=== PATIENT | female | born 1935 | race Caucasian/White ===

== ENCOUNTER 2019-03-29 06:55 | Inpatient (IN) | payer MEDICARE ==
[~2019-03-29] VITALS: Ht 175.3 cm; Wt 61.7 kg
[2019-03-29] MEDS ORDERED: ALBUTEROL (0.083%) 2.5MG/3ML NEB HHN STA ×2 (07:18→11:30)
[2019-03-29 07:48] LABS: BASOPHILS % 0.4 % (0.0-2.0); EOSINOPHILS % 0.3 % (0.0-5.0); HEMATOCRIT. 30.9 % (36.0-48.0); LYMPHOCYTES % 8.6 % (20.0-50.0); MEAN CORPUSCULAR HEMOGLOBIN 37.3 pg (28.0-32.0); MEAN CORPUSCULAR VOLUME 104.7 fL (81.0-99.0); MEAN PLATELET VOLUME 8.8 fl (7.4-10.4); MONOCYTES % 7.9 % (2.0-8.0); NEUTROPHILS % 82.8 % (40.0-76.0); PLATELET 212 x1000/uL (130-400); RED BLOOD CELL COUNT 2.95 mill/uL (4.2-5.4)
[2019-03-29 07:55] LABS: CHLORIDE 96 mEq/L (98-107)
[2019-03-29 11:21] LABS: BG CARBOXYHEMOGLOBIN 0.7 % (0.5-1.5); BG DEOXYHEMOGLOBIN 13.2 % (0.0-5.0); BG FRACTION INSPIRED OXYGEN 32; BG HCO3 ACT 23.1 mmol/L (22.0-26.0); BG METHEMOGLOBIN 0.1 % (0.0-1.5); BG OXYGEN SATURATION 86.7 % (92.0-98.5); BG PCO2 32.4 mmHg (35.0-45.0); BG PO2 51.8 mmHg (75.0-100.0); BG SAMPLE SITE RIGHT BRACHIAL; BG TOTAL HEMOGLOBIN 11.5 g/dL (12.0-18.0); BG VENT MODE NASAL CANNULA
[2019-03-29] MEDS ORDERED: IPRATROPIUM BROMIDE (0.02%) 0.5MG/2.5ML NEB HHN STA (11:30)
[2019-03-29] MEDS ORDERED: METHYLPREDNISOLONE SOD SUCC 125 MG/2 ML VIAL IV STA (11:30)
[2019-03-29] MEDS ORDERED: IPRATROPIUM/ALBUTEROL 0.5-3(2.5)MG/3ML NEB HHN PRN (12:15)
[2019-03-29] MEDS ORDERED: ONDANSETRON HCL 4MG/2ML INJ IV PRN (12:15)
[2019-03-29] MEDS ORDERED: ACETAMINOPHEN 325MG TABLET PO PRN (12:15)
[2019-03-29] MEDS ORDERED: LEVOFLOXACIN 500MG PREMIX 100 ML IV ONE (13:00)
[2019-03-29] MEDS ORDERED: IPRATROPIUM/ALBUTEROL 0.5-3(2.5)MG/3ML NEB HHN SCH (16:00)
[2019-03-29 22:00] VITALS: BP 131/51
[2019-03-29] MEDS ORDERED: ENOXAPARIN 40MG/0.4ML SYR SUBCUT SCH (22:00)
[2019-03-29] MEDS: METHYLPREDNISOLONE SOD SUCC 40 MG/ML VIAL IV SCH (23:41)
[2019-03-29] MEDS: AMLODIPINE 5MG TABLET PO SCH (23:41)
[2019-03-30 04:00] VITALS: BP 130/55
[2019-03-30] MEDS ORDERED: ASPI-1158 PO (06:06)
[2019-03-30 07:13] LABS: CHLORIDE 92 mEq/L (98-107)
[2019-03-30] MEDS: METHYLPREDNISOLONE SOD SUCC 40 MG/ML VIAL IV SCH (07:13)
[2019-03-30 08:00] VITALS: BP 131/34
[2019-03-30 08:07] LABS: BASOPHILS % 0.2 % (0.0-2.0); HEMATOCRIT. 29.5 % (36.0-48.0); HEMOGLOBIN. 10.5 g/dL (12.0-16.0); MEAN CORPUSCULAR HEMOGLOBIN 36.5 pg (28.0-32.0); MEAN PLATELET VOLUME 9.5 fl (7.4-10.4); MONOCYTES % 2.1 % (2.0-8.0); NEUTROPHILS % 86.7 % (40.0-76.0); PLATELET 224 x1000/uL (130-400); RED BLOOD CELL COUNT 2.89 mill/uL (4.2-5.4)
[2019-03-30] MEDS: AMLODIPINE 5MG TABLET PO SCH (08:46)
[2019-03-30] MEDS ORDERED: LEVOFLOXACIN 500MG PREMIX 100 ML IV SCH (12:00)
== END 2019-03-30 09:56 | disposition left against medical advice (07) | DRG 871 ==
LOC: ER 06:55 → 6WST 12:03 → EDBEDREQ 12:06 → ENRESERV 20:05
PROVIDERS: ADMIT Internal Medicine; ATTEND Internal Medicine
DX: A41.9 Sepsis, unspecified organism (principal); J96.00 Acute respiratory failure, unspecified whether with hypoxia or hypercapnia; J18.9 Pneumonia, unspecified organism; E87.1 Hypo-osmolality and hyponatremia; J44.1 Chronic obstructive pulmonary disease with (acute) exacerbation; I50.40 Unspecified combined systolic (congestive) and diastolic (congestive) heart failure; J44.0 Chronic obstructive pulmonary disease with (acute) lower respiratory infection; D64.9 Anemia, unspecified; E03.9 Hypothyroidism, unspecified; E87.8 Other disorders of electrolyte and fluid balance, not elsewhere classified; I34.1 Nonrheumatic mitral (valve) prolapse; I11.0 Hypertensive heart disease with heart failure
CPT/HCPCS: 36415; 36600; 71045; 80048; 80053; 80061; 82375; 82805; 83880; 84443; 84484; 85025; 87804; 93005; 94640; 96365; 99291; J1650; J1956; J2920; J2930; J7611